=== PATIENT | male | born 1955 | race Two or more races ===

== ENCOUNTER 2020-08-01 14:22 | Emergency (ER) | payer OTHER ==
[~2020-08-01] VITALS: Ht 170.2 cm; Wt 79.4 kg
[2020-08-01] MEDS ORDERED: HYDROcodone-ACET 5/325MG TAB PO ONE (16:45)
[2020-08-01 17:42] VITALS: BP 150/82
== END 2020-08-01 18:29 | disposition home or self-care (01) ==
LOC: EDBD 14:22 → ER 14:22
DX: M62.830 Muscle spasm of back (principal); R51.9 Headache, unspecified; I10 Essential (primary) hypertension; E78.5 Hyperlipidemia, unspecified; E11.9 Type 2 diabetes mellitus without complications; V49.9XXA Car occupant (driver) (passenger) injured in unspecified traffic accident, initial encounter; Y93.89 Activity, other specified; Y92.89 Other specified places as the place of occurrence of the external cause; Y99.8 Other external cause status
CPT/HCPCS: 70450; 72100